=== PATIENT | female | born 1980 | race Hispanic/Latino ===

== ENCOUNTER 2018-03-03 10:33 | Emergency (ER) | payer OTHER | END 2018-03-03 11:40 | disposition home or self-care (01) | LOC: EDH 10:33 | DX: G56.02 Carpal tunnel syndrome, left upper limb (principal); G43.909 Migraine, unspecified, not intractable, without status migrainosus | CPT/HCPCS: 99281 ==

== ENCOUNTER 2018-11-06 10:19 | Emergency (ER) | payer MEDICAID, OTHER ==
[2018-11-06 10:53] LABS: BILIRUBIN,URINE Negative (NEGATIVE); COLOR,URINE Yellow (YELLOW); GLUCOSE, URINE (UA) Negative (NEGATIVE); KETONES,URINE Negative (NEGATIVE); LEUKOCYTE ESTERASE ,URINE Large (NEGATIVE); NITRATE,URINE Negative (NEGATIVE); OCCULT BLOOD,URINE Negative (NEGATIVE); PROTEIN,URINE Negative (NEGATIVE); UROBILINOGEN,URINE 0.2 mg/dL (0.2-1.0)
[2018-11-06 10:59] LABS: APPEARANCE,URINE CLEAR (CLEAR)
[2018-11-06 11:00] LABS: HCG,QUAL RESULT NEGATIVE (NEGATIVE)
[2018-11-06 11:04] LABS: BACTERIA,URINE Rare /HPF (None Seen); RBC,URINE 0-1 /HPF (0-1); SQUAMOUS EPITHELIAL CELL,UR Rare /HPF (0-2)
[2018-11-06] MEDS ORDERED: LIDOCAINE HCL-MPF 1% 2ML VIAL ONE (11:19)
[2018-11-06] MEDS ORDERED: CEFTRIAXONE SODIUM 1 GM ONE (11:19)
[2018-11-06] MEDS ORDERED: ACETAMINOPHEN EXTRA STRENGTH 500 MG TABLET ONE (11:20)
== END 2018-11-06 11:46 | disposition home or self-care (01) ==
LOC: EDH 10:19
DX: S09.8XXA Other specified injuries of head, initial encounter (principal); N30.00 Acute cystitis without hematuria; G43.909 Migraine, unspecified, not intractable, without status migrainosus; Z87.891 Personal history of nicotine dependence; W18.39XA Other fall on same level, initial encounter; Y93.01 Activity, walking, marching and hiking; Y92.89 Other specified places as the place of occurrence of the external cause; Y99.8 Other external cause status
CPT/HCPCS: 81001; 81025; 87804 ×2; 96372; 99283; J0696; J3490

== ENCOUNTER 2018-12-19 07:07 | Emergency (ER) | payer MEDICAID ==
[2018-12-19] MEDS ORDERED: ACETAMINOPHEN EXTRA STRENGTH 500 MG TABLET ONE (08:26)
== END 2018-12-19 09:17 | disposition home or self-care (01) ==
LOC: EDH 07:07
DX: O99.511 Diseases of the respiratory system complicating pregnancy, first trimester (principal); J06.9 Acute upper respiratory infection, unspecified; G43.909 Migraine, unspecified, not intractable, without status migrainosus; Z3A.11 11 weeks gestation of pregnancy
CPT/HCPCS: 81025; 87804

== ENCOUNTER 2019-04-04 18:25 | Emergency (ER) | payer MEDICAID ==
[2019-04-04] MEDS ORDERED: ONDANSETRON HCL 4 MG/2 ML VIAL ONE (19:49)
[2019-04-04] MEDS ORDERED: SODIUM CHLORIDE 0.9% 1000ML 1,000 ML IV ONE (19:50)
[2019-04-04 19:56] LABS: BASOPHILS % (AUTO) 0.6 % (0.0-5.0); EOSINOPHILS % (AUTO) 1.5 % (0.0-8.0); HEMATOCRIT 36.9 % (36-48); LYMPHOCYTES % (AUTO) 19.1 % (21.0-51.0); MEAN CORPUSCULAR HEMOGLOBIN 28.7 pg (27.0-33.0); MONOCYTES % (AUTO) 9.4 % (3.0-13.0); NEUTROPHILS % (AUTO) 69.4 % (40.0-77.0); PLATELET COUNT (AUTO) 358 K/uL (130-400); RED BLOOD CELL COUNT(AUTO) 4.24 MIL/uL (4.00-5.50); RED CELL DISTRIBUTION WIDTH 14.6 % (11.0-15.5); WHITE BLOOD COUNT (AUTO) 14.6 K/uL (4.8-10.8)
[2019-04-04 20:11] LABS: CREATININE 0.7 mg/dL (0.5-1.5); POTASSIUM 3.7 mmol/L (3.5-5.1)
[2019-04-04 20:24] LABS: AMPHET/METH SCREEN,URINE NEGATIVE (NEGATIVE); BARBITURATE SCREEN, URINE NEGATIVE (NEGATIVE); BENZODIAZEPINES SCREEN,URINE NEGATIVE (NEGATIVE); CANNABINOID SCREEN,URINE NEGATIVE (NEGATIVE); COCAINE SCREEN,URINE NEGATIVE (NEGATIVE); OPIATE SCREEN,URINE NEGATIVE (NEGATIVE); PHENCYCLIDINE SCREEN,URINE NEGATIVE (NEGATIVE)
[2019-04-04 20:41] LABS: HCG,QUAL RESULT POSITIVE (NEGATIVE)
[2019-04-04 20:47] LABS: APPEARANCE,URINE CLOUDY (CLEAR); BILIRUBIN,URINE N (NEGATIVE); COLOR,URINE YELLOW (YELLOW); GLUCOSE, URINE (UA) NEGATIVE (NEGATIVE); KETONES,URINE NEGATIVE (NEGATIVE); OCCULT BLOOD,URINE TRACE-INTACT (NEGATIVE); PROTEIN,URINE NEGATIVE (NEGATIVE)
[2019-04-04 20:48] LABS: LEUKOCYTE ESTERASE ,URINE LARGE (NEGATIVE); NITRATE,URINE NEGATIVE (NEGATIVE); UROBILINOGEN,URINE 0.2 mg/dL (0.2-1.0)
[2019-04-04 21:12] LABS: BACTERIA,URINE Few /HPF (None Seen)
== END 2019-04-04 21:40 | disposition home or self-care (01) ==
LOC: EDH 18:25
DX: O23.42 Unspecified infection of urinary tract in pregnancy, second trimester (principal); O26.892 Other specified pregnancy related conditions, second trimester; R42 Dizziness and giddiness; I10 Essential (primary) hypertension; Z3A.25 25 weeks gestation of pregnancy
CPT/HCPCS: 36415; 80048; 80305; 81001; 81025; 85025; 93005; 96361; 96374; 99285; J2405; J7030

== ENCOUNTER → 2022-03-02 | Outpatient (CLI) | payer MEDICAID ==
[~2022-03-02] MED LIST: LABE100T5 PO; PREN-196 PO
== END | disposition home or self-care (01) ==
LOC: RAH 12:18
PROVIDERS: ATTEND Family Medicine
DX: M79.644 Pain in right finger(s) (principal)
CPT/HCPCS: 73130

== ENCOUNTER → 2023-06-21 | Outpatient (CLI) | payer MEDICAID ==
[~2023-06-21] MED LIST changes: -LABE100T5 PO; +LABE100T7 PO
== END | disposition home or self-care (01) ==
LOC: OIH 16:04
PROVIDERS: ATTEND Family Medicine
DX: S93.402A Sprain of unspecified ligament of left ankle, initial encounter (principal); S93.401A Sprain of unspecified ligament of right ankle, initial encounter; M25.511 Pain in right shoulder; X58.XXXA Exposure to other specified factors, initial encounter; Y93.89 Activity, other specified; Y92.89 Other specified places as the place of occurrence of the external cause; Y99.8 Other external cause status
CPT/HCPCS: 73030

== ENCOUNTER 2023-07-31 16:43 | Emergency (ER) | payer MEDICAID ==
[~2023-07-31] VITALS: Ht 152.4 cm; Wt 89.8 kg
[2023-07-31] MEDS ORDERED: METOCLOPRAMIDE 10 MG/2 ML VIAL IVP ONE (17:30)
[2023-07-31] MEDS ORDERED: DiphenhydrAMINE HCL 50 MG/ML VIAL IV ONE (17:30)
[2023-07-31] MEDS ORDERED: 0.9%NACL 1000ML 1,000 ML IV ONE (17:30)
[2023-07-31] MEDS ORDERED: KETOROLAC 15MG/ML VIAL (15MG/ML) ONE (18:17)
[2023-07-31] MEDS ORDERED: KETOROLAC 15MG/ML VIAL (15MG/ML) IV ONE (18:30)
[2023-07-31] MEDS ORDERED: KETOROLAC 30MG VIAL (30MG/ML) IVP ONE (18:30)
[2023-07-31] MEDS ORDERED: FIORIT PO (18:40)
[2023-07-31] MEDS ORDERED: IBUP-2070 PO (18:40)
[2023-07-31 18:52] VITALS: BP 143/89; PULSE 83; RESP 18; O2SAT 97
== END 2023-07-31 18:50 | disposition home or self-care (01) ==
LOC: EDH 16:43
DX: G44.209 Tension-type headache, unspecified, not intractable (principal); G43.909 Migraine, unspecified, not intractable, without status migrainosus; I10 Essential (primary) hypertension
CPT/HCPCS: 99284; 96374; 96375; 96361; 81025; J1200; J7030; J2765; J1885

== ENCOUNTER 2024-05-02 19:46 | Inpatient (IN) | payer MEDICAID ==
[~2024-05-02] VITALS: Ht 152.4 cm; Wt 92.1 kg
[~2024-05-02 19:46] MED LIST changes: +FIORIT PO; +IBUP-2070 PO
[2024-05-02 20:45] LABS: HEMATOCRIT 32.5 % (36-48); MEAN CORPUSCULAR HEMOGLOBIN 25.4 pg (27.0-33.0); MEAN CORPUSCULAR HGB CONC 32.3 g/dL (32.0-36.0); MEAN CORPUSCULAR VOLUME 78.5 fL (79-99); RED BLOOD CELL COUNT(AUTO) 4.14 MIL/uL (4.00-5.50); RED CELL DISTRIBUTION WIDTH 14.9 % (11.0-15.5); WHITE BLOOD COUNT (AUTO) 10.2 K/uL (4.8-10.8)
[2024-05-02 20:46] LABS: APPEARANCE,URINE CLOUDY (CLEAR); BILIRUBIN,URINE NEGATIVE (NEGATIVE); COLOR,URINE YELLOW (YELLOW); GLUCOSE, URINE (UA) NEGATIVE (NEGATIVE); KETONES,URINE 5 mg/dL (NEGATIVE); LEUKOCYTE ESTERASE ,URINE 250 Leu/uL (NEGATIVE); NITRATE,URINE NEGATIVE (NEGATIVE); PH,URINE 5.5 (5.0-8.0); PROTEIN,URINE 30 mg/dL (NEGATIVE)
[2024-05-02] MEDS: LACTATED RINGERS 1000ML 1,000 ML IV SCH (20:51)
[2024-05-02 20:53] LABS: ADD UA MICROSCOPIC YES; AMPHET/METH SCREEN,URINE NEGATIVE (NEGATIVE); BARBITURATE SCREEN, URINE NEGATIVE (NEGATIVE); BENZODIAZEPINES SCREEN,URINE NEGATIVE (NEGATIVE); CANNABINOID SCREEN,URINE NEGATIVE (NEGATIVE); COCAINE SCREEN,URINE NEGATIVE (NEGATIVE); OPIATE SCREEN,URINE NEGATIVE (NEGATIVE); PHENCYCLIDINE SCREEN,URINE NEGATIVE (NEGATIVE)
[2024-05-02 20:57] LABS: MUCUS,URINE FEW LPF (None Seen); OTHER CASTS, URINE 4 /LPF (None Seen); SQUAMOUS EPITHELIAL CELL,UR MANY /HPF (0-2)
[2024-05-02] MEDS: LABETALOL HCL 100 MG TABLET PO SCH (21:31)
[2024-05-02 22:07] LABS: HIV 1&2 ANTIBODY Non-Reactive (Negative); HIV-1 p24 Antigen Non-Reactive (Negative)
[2024-05-03] MEDS ORDERED: INSULIN HUMULIN R 100 UNIT/ML 3ML SQ SCH
[2024-05-03] MEDS: CEFAZOLIN SODIUM 1 GM VIAL IVPB PRN (06:31)
[2024-05-03] MEDS ORDERED: FENTANYL CITRATE PF 50 MCG/1 ML 2ML VIAL ONE ×2 (06:47→07:41)
[2024-05-03] MEDS ORDERED: PHENYLEPHRINE HCL 10 MG/ML 1ML VIAL IV ONE (06:47)
[2024-05-03] MEDS ORDERED: CITRIC ACID/SODIUM CITRATE 30 ML UDCUP ONE (06:54)
[2024-05-03] MEDS ORDERED: MORPHINE PF 100MG/10ML AMP IV ONE (06:55)
[2024-05-03] MEDS ORDERED: MISOPROSTOL 200 MCG TABLET ONE (06:55)
[2024-05-03] MEDS ORDERED: METHYLERGONOVINE MALEATE 0.2 MG/1 ML ML ONE (06:56)
[2024-05-03] MEDS ORDERED: EPHEDRINE SULFATE 50 MG/ML AMPULE ONE (07:13)
[2024-05-03] MEDS ORDERED: OXYTOCIN 10 UNIT/1ML 10ML VIAL ONE (07:23)
[2024-05-03] MEDS ORDERED: ONDANSETRON 4MG INJ ONE (07:33)
[2024-05-03] MEDS ORDERED: PROPOFOL 10 MG/ML 20ML VIAL IV ONE (07:42)
[2024-05-03] MEDS ORDERED: CITRIC ACID/SODIUM CITRATE 30 ML UDCUP PO SCH (08:00)
[2024-05-03] MEDS: CALDOLOR 800MG+NS 250ML 250 ML IV ONE (08:53)
[2024-05-03] MEDS ORDERED: CALDOLOR 800MG+NS 250ML 250 ML IV SCH (09:00)
[2024-05-03] MEDS ORDERED: MEPERIDINE-PF 75 MG/ML SYG IM PRN (09:30)
[2024-05-03] MEDS ORDERED: PROMETHAZINE HCL 25 MG/ML 1ML AMPULE IM PRN (09:30)
[2024-05-03] MEDS ORDERED: 0.9%NACL 10ML VIAL IVP PRN (09:30)
[2024-05-03] MEDS ORDERED: NPH,100V11 SQ (10:15)
[2024-05-03 11:55] LABS: HEMATOCRIT 30.4 % (36-48)
[2024-05-03 12:00] VITALS: BP 134/71; PULSE 82; RESP 18
[2024-05-03] MEDS: LORATADINE 10 MG TABLET ONE (12:18)
[2024-05-03] MEDS: LORATADINE 10 MG TABLET PO ONE (12:26)
[2024-05-03 12:50] VITALS: BP 126/90; PULSE 80; RESP 20
[2024-05-03 14:36] LABS: RAPID PLASMA REAGIN NONREACTIVE (NONREACTIVE)
[2024-05-03 15:25] VITALS: BP 137/92; PULSE 78; RESP 20
[2024-05-03] MEDS: DiphenhydrAMINE HCL 50 MG/ML VIAL IV PRN (15:53)
[2024-05-03] MEDS: DEXTROSE 5 %-0.45 % NACL 1,000 ML IV PRN (16:51)
[2024-05-03] MEDS: CALDOLOR 800MG+NS 250ML 250 ML IV SCH (16:51)
[2024-05-03 19:37] VITALS: BP 125/79; PULSE 89; RESP 20
[2024-05-03] MEDS: INSULIN NPH 100 UNIT/ML 3ML SQ SCH (20:31)
[2024-05-03] MEDS: INSULIN HUMULIN R 100 UNIT/ML 3ML SQ SCH (20:32)
[2024-05-03 23:03] VITALS: BP 134/80; PULSE 94; RESP 20
[2024-05-04] MEDS ORDERED: LANOLIN 30GM OINTMENT TP PRN (01:30)
[2024-05-04] MEDS ORDERED: HYDROCODONE/ACETAMINOPHEN 5/325 MG TAB PO PRN (01:30)
[2024-05-04] MEDS ORDERED: DIPHENHYDRAMINE HCL 25 MG CAPSULE PO PRN (01:30)
[2024-05-04 03:46] VITALS: BP 119/70; PULSE 90; RESP 18
[2024-05-04 06:27] LABS: HEMATOCRIT 28.1 % (36-48); MEAN CORPUSCULAR HEMOGLOBIN 24.7 pg (27.0-33.0); MEAN CORPUSCULAR HGB CONC 31.3 g/dL (32.0-36.0); MEAN CORPUSCULAR VOLUME 78.9 fL (79-99); PLATELET COUNT (AUTO) 281 K/uL (130-400); RED BLOOD CELL COUNT(AUTO) 3.56 MIL/uL (4.00-5.50); RED CELL DISTRIBUTION WIDTH 14.9 % (11.0-15.5); WHITE BLOOD COUNT (AUTO) 15.6 K/uL (4.8-10.8)
[2024-05-04 08:00] VITALS: BP 140/91; PULSE 102; RESP 16
[2024-05-04] MEDS: DOCUSATE SODIUM 100 MG CAP PO SCH (08:56)
[2024-05-04] MEDS: IBUPROFEN 800 MG TAB PO SCH (08:57)
[2024-05-04] MEDS: SIMETHICONE 80 MG TAB.CHEW PO PRN (08:57)
[2024-05-04] MEDS ORDERED: BISACODYL 10 MG SUPP.RECT RC PRN (09:00)
[2024-05-04] MEDS: ACETAMINOPHEN 500 MG TABLET PO PRN (09:39)
[2024-05-04 11:50] VITALS: BP 123/76; PULSE 101; RESP 20
[2024-05-04 16:00] VITALS: BP 133/87; PULSE 99; RESP 20
[2024-05-04 19:43] VITALS: BP 132/94; PULSE 104; RESP 20
[2024-05-04] MEDS: ACETAMINOPHEN WITH CODEINE 1 TAB TAB PO PRN (19:48)
[2024-05-04 23:36] VITALS: BP 123/76; PULSE 96; RESP 19
[2024-05-05 03:30] VITALS: BP 121/74; PULSE 114; RESP 19
[2024-05-05 07:30] VITALS: BP 119/73; PULSE 100; RESP 20
[2024-05-05] MEDS: ENOXAPARIN SODIUM 40 MG/0.4 ML SYRINGE SQ SCH (08:59)
[2024-05-05 12:00] VITALS: BP 127/85; PULSE 84; RESP 20
[2024-05-05 16:00] VITALS: BP 129/91; PULSE 101; RESP 20
== END 2024-05-05 19:30 | disposition home or self-care (01) | DRG 539 ==
LOC: LDH 19:49 → WSH 05-03 12:46
PROVIDERS: ADMIT Internal Medicine; ATTEND Internal Medicine
PROC: 0UB70ZZ Excision of Bilateral Fallopian Tubes, Open Approach (ICD-10-PCS; 2024-05-03)
PROC: 10D00Z1 Extraction of Products of Conception, Low, Open Approach (ICD-10-PCS; principal; 2024-05-03 07:00)
DX: O24.424 Gestational diabetes mellitus in childbirth, insulin controlled (principal); O34.211 Maternal care for low transverse scar from previous cesarean delivery; O99.214 Obesity complicating childbirth; Z30.2 Encounter for sterilization; Z37.0 Single live birth; Z3A.38 38 weeks gestation of pregnancy
CPT/HCPCS: 36415; 59510; 80305; 81001; 82947; 82948; 85014; 85018; 85027; 86592; 86701; 86850; 86900; 86901; 87086; 87340; 87390; A4344; G0378; J0690; J1200; J1650; J1741; J1815; J2210; J2274; J2371; J2405; J2590; J2704; J3010; J3490; J7120; A4248; A4510; A4649; A9272